=== PATIENT | female | born 1950 | race Caucasian/White ===

== ENCOUNTER 2017-09-30 09:46 | Outpatient (CLI) | payer BC | END 2017-09-30 09:47 | disposition home or self-care (01) | LOC: BICRAD 09:46 | PROVIDERS: ATTEND Internal Medicine | DX: R05 Cough (principal); J18.9 Pneumonia, unspecified organism; I70.0 Atherosclerosis of aorta | CPT/HCPCS: 36415; 71046; 81001; 85025; 87086; 87804 ==

== ENCOUNTER 2017-11-10 13:22 | Outpatient (CLI) | payer BC | END 2017-11-10 13:23 | disposition home or self-care (01) | LOC: BICRAD 13:22 | PROVIDERS: ATTEND Internal Medicine | DX: J18.9 Pneumonia, unspecified organism (principal) | CPT/HCPCS: 71046 ==

== ENCOUNTER 2018-02-02 16:06 | Outpatient (CLI) | payer BC | END 2018-02-02 16:07 | disposition home or self-care (01) | LOC: BICMAMMO 16:06 | PROVIDERS: ATTEND Internal Medicine | DX: Z12.31 Encounter for screening mammogram for malignant neoplasm of breast (principal) | CPT/HCPCS: 77063; 77067 ==

== ENCOUNTER 2018-03-03 08:07 | Outpatient (CLI) | payer BC ==
--- NOTE | 2018-03-03 10:02 | MRI ---
CERVICAL SPINE MRI WITHOUT CONTRAST: HISTORY: Arm pain. Bilateral hand pain, x 2 months. COMPARISON: None. TECHNIQUE: MRI cervical spine is performed without contrast. Multisequential, multiplanar imaging is performed. FINDINGS: Appropriate T1 marrow signal intensity of the cervical vertebrae. Cervical spine vertebral body heig ht is maintained. There is no fracture. Visualized brain parenchyma, cervicomedullary junction, cer vical cord, and the upper thoracic cord have a normal size and signal intensity. C2-C3: No significant disk-osteophyte complex. No significant central canal stenosis. Foramen are patent. C3-C4: No significant disk-osteophyte complex. No significant central canal stenosis. Neural capri en are patent. C4-C5: No significant disk-osteophyte complex. No significant central canal stenosis. Neural capri en are patent. C5-C6: Mild loss of disk space height. There is a generalized disk bulge with a small right paracen tral component. There is flattening of the right aspect of the thecal sac and right hemicord. No hy perintensity in the cord. Mild central canal stenosis. Minimal right foraminal narrowing due to unc overtebral hypertrophy. The left neural foramen is patent. C6-C7: No significant disk-osteophyte complex. No significant central canal stenosis. Foramen are patent. C7-T1: No significant disk-osteophyte complex. No significant central canal stenosis. Neural capri en are patent. IMPRESSION: Degenerative changes of the cervical spine as above. POS: [facility]
== END 2018-03-03 08:08 | disposition home or self-care (01) ==
LOC: MRI 08:07
PROVIDERS: ATTEND Neurological Surgery
DX: M47.22 Other spondylosis with radiculopathy, cervical region (principal)
CPT/HCPCS: 72141

== ENCOUNTER 2018-04-10 13:52 | Outpatient (CLI) | payer MEDICARE ==
--- NOTE | 2018-04-10 15:12 | RAD ---
LEFT WRIST THREE VIEWS: History: Distal ulnar pain. Positive rheumatoid factor. FINDINGS: The bones are diffusely demineralized. There is an ulna minus variant present. The lunate is normal i n appearance. No erosive change of the ulnar styloid. No cystic bony change. Some minimal osteoarthri tic changes are present. IMPRESSION: Diffuse bony demineralization. No definitive plain film evidence that would suggest rheumatoid arthri tis. POS: [facility]
--- NOTE | 2018-04-10 15:13 | RAD ---
RIGHT HAND THREE VIEWS: History: Hand pain, positive rheumatoid fracture. FINDINGS: Bones are diffusely demineralized. Joint spaces all appear fairly well preserved. No bony erosive rajesh nge that would suggest rheumatoid. Ulna minus variant incidentally noted. Minimal osteoarthritic lópez ges are seen. IMPRESSION: Minimal osteoarthritic changes of the hand. POS: [facility]
--- NOTE | 2018-04-10 15:17 | RAD ---
RIGHT WRIST THREE VIEWS: History: Right wrist and hand pain. History of positive rheumatoid factor. FINDINGS: Bones appear somewhat diffusely demineralized. Joint spaces appear well preserved without erosive rajesh nge. There is an ulna minus variant present. Ulnar styloid shows no erosion. IMPRESSION: Diffuse bony demineralization. Minimal osteoarthritic changes of the wrist. POS: [facility]
--- NOTE | 2018-04-10 15:30 | RAD ---
LEFT HAND THREE VIEWS: History: Hand pain. Positive rheumatoid factor. FINDINGS: Bones appear diffusely demineralized. I do not see any periarticular erosive change. Ulnar styloid is not eroded. There is an ulna minus variant present. IMPRESSION: Diffuse bony demineralization. No definitive features of rheumatoid arthritis. POS: [facility]
== END 2018-04-10 13:53 | disposition home or self-care (01) ==
LOC: BICRAD 13:52
PROVIDERS: ATTEND Internal Medicine Rheumatology
DX: M05.9 Rheumatoid arthritis with rheumatoid factor, unspecified (principal); M81.0 Age-related osteoporosis without current pathological fracture; M19.031 Primary osteoarthritis, right wrist; M19.041 Primary osteoarthritis, right hand

== ENCOUNTER 2021-12-17 08:37 | Outpatient (CLI) | payer MEDICARE, BC | END 2021-12-17 08:38 | disposition home or self-care (01) | LOC: BICMAMMO 08:37 | PROVIDERS: ATTEND Internal Medicine | DX: Z12.31 Encounter for screening mammogram for malignant neoplasm of breast (principal) | CPT/HCPCS: 77063; 77067 ==

== ENCOUNTER 2024-04-27 09:39 | Outpatient (CLI) | payer MEDICARE, BC | END 2024-04-27 09:40 | disposition home or self-care (01) | LOC: BICRAD 09:39 | PROVIDERS: ATTEND Internal Medicine | DX: R05.9 Cough, unspecified (principal) | CPT/HCPCS: 71046 ==